=== PATIENT | male | born 1930 | race Caucasian/White ===

== ENCOUNTER → 2016-07-23 | Outpatient (CLI) | payer MEDICARE ==
--- NOTE | ~2016-07-23 | CT14 ---
[facility] A Service of [facility] & [facility] RADIOLOGY TEXT RESULTS PATIENT: MINOR LORENZANA LOCATION: [facility] : 32 UNIT #: [id number] AGE: [address]: Aydin Krishna MD SEX: M ORDER DR: [id number] [facility] [address] [place], [place] [address] [id number] O MR#: [id number] [facility] #: [id number] NAME: MINOR LORENZANA : 1930 SEX: M STUDY DATE/TIME: 07/23/2016 8:55 UNIT: [facility] ROOM: STUDY DESCRIPTION: CT Angio Abdomen and Pelvis Attending Physician: Aydin Krishna M.D. Referring Physician: Aydin Krishna M.D. Ordering Physician: Aydin Krishna M.D. Primary Care Physician: Khalif Guillory M.D. MEDICAL IMAGING REPORT This report is preliminary unless electronic signature is present EXAM CT angiogram abdomen and pelvis. INDICATIONS Prior endovascular aortic repair. Routine follow up. Previous aneurysm. TECHNIQUE CT angiogram abdomen and pelvis was performed before and after the administration of IV contrast using multiphase stent graft protocol. Coronal, sagittal 3-D reformatted images were obtained. This CT exam was performed with one or more of the following radiation dose reduction techniques: automatic exposure control, adjustment of mA and/or kV according to patient size, and iterative reconstruction. COMPARISON Comparison is made with 01/23/2016. 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 Again demonstrated is an aortic stent graft. The stent graft is widely patent. Re-demonstrated is a small endoleak in the posterior aneurysm sac just before the bifurcation. It is not significantly changed in size. The aneurysm sac in this region measures approximately 4.8 x 3.6 cm and this is unchanged. On the delayed phase endoleak extends into the left common iliac artery aneurysm sac. The extent of this endoleak is also not significantly changed. The left common iliac artery aneurysm sac measures roughly 3.7 x 3.1 cm and this is unchanged. There is also a small endoleak present within the right internal iliac artery aneurysm sac and this does not appear significantly changed either. The right internal iliac artery aneurysm sac is also unchanged in size, measuring about 2.6 x 2.2 cm. No other definite endoleaks are seen. The stents within both internal iliac arteries are STS. [facility] A Service of [facility] & [facility] RADIOLOGY TEXT RESULTS PATIENT: MINOR LORENZANA W LOCATION: [facility] : 32 UNIT #: [id number] AGE: [address]: Adyin Krishna MD SEX: M ORDER DR: patent. Stable appearance of the visceral arteries. CT of the abdomen: There is minimal linear scar or atelectasis in the left base. There is a small area of presumed vascular shunting in the left lobe of the liver. Cholelithiasis. The spleen is unremarkable. There is some stable scarring in the upper pole of the right kidney. The left kidney is unremarkable. The adrenal glands are unremarkable. The pancreas is unremarkable. Pelvis: Diverticulosis involving the colon. Normal appendix. No free fluid. Prostatomegaly with what appears to be a TURP. The bone windows are unremarkable. IMPRESSION 1. 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 The aneurysm sac sizes are all unchanged. 2. Patent stent graft and bilateral internal iliac artery stents. 3. Additional findings as described above. Please see full report. Dictated by... Wilbur Brumfield M.D. THIS IS AN ELECTRONICALLY VERIFIED REPORT Wilbur Brumfield M.D. at 07/24/2016 5:08 PM ARS/gz TD: 07/24/2016 11:48 JOB #: [id number] MEDICAL IMAGING REPORT Page 1 of 1 COPY
[2016-07-23 09:50] LABS: POC - CREATININE 0.94 mg/dL (0.64-1.27); POC - GFR >60.0 mL/min (>60)
== END | disposition home or self-care (01) ==
LOC: CCAT 08:15
PROVIDERS: Surgery Vascular Surgery
DX: I72.3 Aneurysm of iliac artery (principal); I77.810 Thoracic aortic ectasia; K80.20 Calculus of gallbladder without cholecystitis without obstruction; N28.89 Other specified disorders of kidney and ureter; K57.30 Diverticulosis of large intestine without perforation or abscess without bleeding; Z95.828 Presence of other vascular implants and grafts
CPT/HCPCS: 74174; 82565; Q9967